=== PATIENT | female | born 1975 | race Asian ===

== ENCOUNTER 2017-07-06 14:35 | Emergency (ER) | payer OTHER, SELFPAY ==
[2017-07-06] MEDS ORDERED: Morphine 2 mg/2ml in 0.9% NaCl PF SYRINGE ONE (15:53)
[2017-07-06 15:58] LABS: #Eosinphils 0.1 thou/uL (0.0-0.7); #Lymphocytes 1.2 thou/uL (1.20-3.40); #Monocytes 0.3 thou/uL (0.11-0.59); #Neutrophils 2.6 thou/uL (1.40-6.50); %Basophils 0.3 % (0.0-1.0); %Eosinophils 2.8 % (0.0-10.0); %Lymphocytes 28.2 % (21.0-51.0); %Monocytes 7.1 % (0.0-10.0); Hematocrit 33.2 % (36.0-47.0); Red Blood Cell (RBC) Count 3.43 mill/uL (4.20-5.40); White Blood Cell (WBC) Count 4.2 thou/uL (4.8-10.8)
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
[2017-07-06 16:19] LABS: ALT (SGPT) 53 U/L (8-55); AST (SGOT) 39 U/L (5-34); Alkaline Phosphatase 104 U/L (40-150); Anion Gap 11 mmol/L (10-20); BUN (Urea Nitrogen) 9 mg/dL (7.0-18.7); Bilirubin, Total 0.3 mg/dL (0.2-1.2); Calc. Creatinine Clearance 0 mL/min (70-130); Calcium 9.3 mg/dL (7.8-10.44); Carbon Dioxide 22 mmol/L (22-29); Chloride 110 mmol/L (98-107); Estimated GFR-MDRD Greater than 90; Globulin 2.6 g/dL (2.4-3.5); Protein, Total 6.4 g/dL (6.0-8.3)
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
[2017-07-06] MEDS ORDERED: ISOVUE-370 76%-LOCM 1 ML ONE (16:26)
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
[2017-07-06 17:05] LABS: Bilirubin Negative (Negative); Blood, Urine Negative (Negative); Glucose, Urine (Dipstick) Negative (Negative); Ketone, Urine Negative (Negative); Nitrite Negative (Negative); Protein, Urine (Dipstick) Negative (Neg-Trace); Urobilinogen 0.2 mg/dL (0.2-1.0)
[2017-07-06 17:08] LABS: Bacteria/HPF None Seen HPF (None Seen); Hyaline Casts/LPF 0-3 HYALINE CAST LPF (0-3 Hyaline); RBC/HPF 0-3 HPF (0-3)
== END 2017-07-06 17:38 | disposition home or self-care (01) ==
LOC: ERS 14:35
DX: S02.2XXA Fracture of nasal bones, initial encounter for closed fracture (principal); T14.8XXA Other injury of unspecified body region, initial encounter; Z85.72 Personal history of non-Hodgkin lymphomas; V43.62XA Car passenger injured in collision with other type car in traffic accident, initial encounter; W22.19XA Striking against or struck by other automobile airbag, initial encounter
CPT/HCPCS: 36415; 70450; 70486; 71260; 72125; 74177; 80053; 81003; 81015; 85025; 96374; J2270

== ENCOUNTER 2017-07-08 18:51 | Emergency (ER) | payer SELFPAY ==
[2017-07-08] MEDS ORDERED: HYDROcodone/Acetaminophen 5/325 mg Tablet ONE (19:38)
== END 2017-07-08 21:19 | disposition home or self-care (01) ==
LOC: ERS 18:51
DX: R07.81 Pleurodynia (principal); Z79.891 Long term (current) use of opiate analgesic
CPT/HCPCS: 99283